=== PATIENT | female | born 1935 | race Caucasian/White ===

== ENCOUNTER 2017-01-29 13:05 | Emergency (ER) | payer MEDICARE ==
[2017-01-29 13:46] LABS: ALT (SGPT) 11 U/L (0-55); AST (SGOT) 21 U/L (5-34); Alkaline Phosphatase 60 U/L (40-150); Anion Gap 13 mmol/L (10-20); BUN (Urea Nitrogen) 9 mg/dL (9.8-20.1); Bilirubin, Total 0.6 mg/dL (0.2-1.2); CK (CPK) 21 U/L (29-168); Calc. Creatinine Clearance 0 mL/min (70-130); Calcium 9.2 mg/dL (7.8-10.44); Carbon Dioxide 27 mmol/L (23-31); Chloride 106 mmol/L (98-107); Estimated GFR-MDRD 52; Globulin 3.1 g/dL (2.4-3.5); Glucose 208 mg/dL (83-110); Potassium 3.9 mmol/L (3.5-5.1); Protein, Total 7.1 g/dL (5.8-8.1); Sodium 142 mmol/L (136-145)
[2017-01-29 13:52] LABS: Troponin I Less than 0.010 ng/mL (< 0.028)
[2017-01-29 14:08] LABS: Band 1 % (5-11); Eosinophils 2 % (0-10); Hemoglobin 14.6 g/dL (12.0-16.0); Lymphocytes 40 % (21-51); MDiff Complete? YES; Mean Corpuscular HGB CONC 33.9 g/dL (32.0-36.0); Mean Corpuscular Hemoglobin 32.7 pg (27.0-31.0); Mean Corpuscular Volume 96.5 fl (81.0-99.0); Mean Platelet Volume 7.2 fL (7.4-10.4); Monocytes 3 % (0-10); Neutrophil 53 % (42-75); PLT Morphology Comment Appears Adequate; Platelet Count 164 thou/uL (130-400); RBC Distribution Width 13.1 % (11.5-14.5); RBC Morphology Normal; Reactive Lymphocytes 1 % (0-10); Red Blood Cell (RBC) Count 4.48 mill/uL (4.20-5.40)
[2017-01-29 14:26] LABS: White Blood Cell (WBC) Count 4.4 thou/uL (4.8-10.8)
--- NOTE | 2017-01-29 21:28 | RAD ---
PORTABLE CHEST: Date: 01-29-17 An AP portable film at 1323 is compared with a 08-01-05 study from [facility]. FINDINGS: The heart is slightly larger today than it was before, even allowing for differences in projection. There are no congestive changes or pleural effusions. The lungs are clear. The trachea is midline. S coliosis is noted as usual. IMPRESSION: Borderline heart size. POS: HOME
== END 2017-01-29 16:25 | disposition short-term general hospital (02) ==
LOC: BURERS 13:05
DX: R07.9 Chest pain, unspecified (principal); R00.1 Bradycardia, unspecified; F32.9 Major depressive disorder, single episode, unspecified; Z95.5 Presence of coronary angioplasty implant and graft
CPT/HCPCS: 71010; 80053; 82550; 84443; 84484; 85025; 93005

== ENCOUNTER 2018-05-19 11:56 | Emergency (ER) | payer MEDICARE ==
[2018-05-19] MEDS ORDERED: Lidocaine Viscous Sol 2% 15 ml UD Cup ONE (12:08)
[2018-05-19] MEDS ORDERED: Magnesium Citrate 300 ML BOT ONE (13:16)
== END 2018-05-19 13:20 | disposition home or self-care (01) ==
LOC: BURERS 11:56
DX: K59.00 Constipation, unspecified (principal); I25.2 Old myocardial infarction; F32.9 Major depressive disorder, single episode, unspecified
CPT/HCPCS: 99283

== ENCOUNTER 2019-08-08 18:04 | Emergency (ER) | payer MEDICARE ==
[2019-08-08] MEDS ORDERED: Fleet Enema 133 ML BOT ONE (19:14)
[2019-08-08 19:16] LABS: Bilirubin Negative (Negative); Blood, Urine Trace (Negative); Clarity Clear (Clear); Glucose, Urine (Dipstick) Negative (Negative); Leukocyte Small (Negative); Nitrite Negative (Negative); Protein, Urine (Dipstick) Negative (Neg-Trace); Urobilinogen 0.2 mg/dL (Less than 2)
[2019-08-08 19:19] LABS: RBC/HPF 0-3 HPF (0-3); WBC/HPF 0-3 HPF (0-3)
[2019-08-08 19:20] LABS: Bacteria/HPF Rare-Few HPF (None Seen); Squamous Epithelial 0-3 HPF (0-3)
[2019-08-08] MEDS ORDERED: Lidocaine Viscous Sol 2% 15 ml UD Cup ONE (19:40)
--- NOTE | 2019-08-08 22:39 | RAD ---
ACUTE ABDOMEN SERIES 08/08/19 Supine and erect films show no free air beneath the diaphragm. A prominent S-shaped thoracolumbar sco liosis is noted as usual. Gas is present in mild distended large and small bowel. There is no free pa ttern or organization to the loops. The findings are more typical of an ileus than a tiera obstructio n, though if the symptoms were to worsen, a follow-up film might be needed to recheck it. Pelvic calc ifications are phleboliths. Dense arterial calcifications are present. The chest film in the series i s compared against a 01/29/17 study. The heart size is unchanged and the lungs are clear. There were n o acute thoracic findings. IMPRESSION: Nonspecific bowel gas pattern. POS: HOME
== END 2019-08-08 20:00 | disposition home or self-care (01) ==
LOC: BURERS 18:04
DX: K64.4 Residual hemorrhoidal skin tags (principal); I25.2 Old myocardial infarction; E11.9 Type 2 diabetes mellitus without complications; Z85.3 Personal history of malignant neoplasm of breast; F32.9 Major depressive disorder, single episode, unspecified; Z79.84 Long term (current) use of oral hypoglycemic drugs; Z79.899 Other long term (current) drug therapy
CPT/HCPCS: 74022; 81003; 81015; 82274; 87086

== ENCOUNTER 2019-10-09 11:46 | Emergency (ER) | payer MEDICARE ==
[2019-10-09 13:08] LABS: Bilirubin Negative (Negative); Blood, Urine Negative (Negative); Clarity Clear (Clear); Glucose, Urine (Dipstick) Negative (Negative); Leukocyte Trace (Negative); Nitrite Negative (Negative); Protein, Urine (Dipstick) Negative (Neg-Trace); Urobilinogen 0.2 mg/dL (Less than 2)
[2019-10-09 13:16] LABS: Bacteria/HPF Rare-Few HPF (None Seen); RBC/HPF None Seen HPF (0-3); Squamous Epithelial 0-3 HPF (0-3); WBC/HPF 0-3 HPF (0-3)
[2019-10-09 13:42] LABS: #Eosinphils 0.1 thou/uL (0.0-0.7); #Lymphocytes 1.5 thou/uL (1.20-3.40); #Monocytes 0.5 thou/uL (0.11-0.59); #Neutrophils 3.7 thou/uL (1.40-6.50); %Basophils 0.8 % (0.0-1.0); %Eosinophils 1.2 % (0.0-10.0); %Lymphocytes 26.1 % (21.0-51.0); %Monocytes 7.8 % (0.0-10.0); %Neutrophils 64.2 % (42.0-75.0); Hemoglobin 15.5 g/dL (12.0-16.0); Mean Corpuscular Hemoglobin 31.5 pg (27.0-31.0); Mean Corpuscular Volume 95.2 fL (78.0-98.0); Mean Platelet Volume 7.3 fL (7.4-10.4); Platelet Count 192 thou/uL (130-400); RBC Distribution Width 12.8 % (11.5-14.5); Red Blood Cell (RBC) Count 4.92 mill/uL (4.20-5.40); White Blood Cell (WBC) Count 5.7 thou/uL (4.8-10.8)
[2019-10-09 13:54] LABS: ALT (SGPT) 24 U/L (8-55); AST (SGOT) 27 U/L (5-34); Albumin 4.6 g/dL (3.4-4.8); Alkaline Phosphatase 80 U/L (40-110); Anion Gap 17 mmol/L (10-20); BUN (Urea Nitrogen) 25 mg/dL (9.8-20.1); Bilirubin, Total 0.7 mg/dL (0.2-1.2); Calc. Creatinine Clearance 0 mL/min (70-130); Calcium 10.1 mg/dL (7.8-10.44); Carbon Dioxide 26 mmol/L (23-31); Chloride 101 mmol/L (98-107); Estimated GFR-MDRD 35; Globulin 3.7 g/dL (2.4-3.5); Glucose 117 mg/dL (83-110); Potassium 4.2 mmol/L (3.5-5.1); Protein, Total 8.3 g/dL (6.0-8.3); Sodium 140 mmol/L (136-145)
[2019-10-09] MEDS ORDERED: Nitrofurantoin Monohyd/M-Cryst 100 MG CAP ONE (14:50)
--- NOTE | 2019-10-09 14:59 | CT ---
CT ABDOMEN AND PELVIS WITHOUT IV CONTRAST: Date: 10/09/19 INDICATION: Abdominal pain. Comparison made to CT abdomen and pelvis dated 2004. FINDINGS: Lung bases are clear. The liver, spleen, and pancreas appear unremarkable considering limitations of a noncontrast study. T here are calcifications in the pancreatic head, which are new from the prior exam. There is a small sliding diaphragmatic hernia. Adrenal glands are normal. Kidneys unremarkable. No hydronephrosis. Ureters are normal caliber. Urinary bladder is mildly disten ded and unremarkable. Small bowel loops are normal caliber. Colon appears unremarkable. Aorta is calcified, but normal caliber. No mass or adenopathy. Images through the pelvis show evidence of hysterectomy. There is an anterior abdominal wall hernia in the midline superior to the umbilicus. Anterior abdomin al wall defect measures approximately 1.7 cm. Mesenteric fat herniates into the subcutaneous adipose tissue with hernia sac measuring 6.0 cm width. IMPRESSION: 1. No acute intra-abdominal process identified. 2. Anterior abdominal wall hernia as described above. POS: [facility]
== END 2019-10-09 15:02 | disposition home or self-care (01) ==
LOC: BURERS 11:46
DX: N39.0 Urinary tract infection, site not specified (principal); R10.30 Lower abdominal pain, unspecified; R32 Unspecified urinary incontinence; I25.2 Old myocardial infarction; E11.9 Type 2 diabetes mellitus without complications; F32.9 Major depressive disorder, single episode, unspecified; Z79.899 Other long term (current) drug therapy
CPT/HCPCS: 74176; 80053; 81003; 81015; 85025; 87086

== ENCOUNTER 2019-10-18 14:45 | Emergency (ER) | payer MEDICARE ==
[2019-10-18 15:38] LABS: Base Excess-Venous -0.9 mmol/L (-2.0 to 3.0); Bicarbonate (HCO3v) 25.8 mmol/L (22.0-28.0); CO2 Tension (PvCO2) 49.5 mmHg (40.0-50.0); Calcium, Ionized 1.14 mmol/L (See Comments:); Chloride 104 mmol/L (98-107); Hemoglobin - Calc 14.4 g/dL (12.0-16.0); Potassium 3.8 mmol/L (3.5-5.1); Sodium 139 mmol/L (138-145); T. Carbon Dioxide 27.3 mmol/L (22.0-28.0); vO2 Saturation-calc 92.1 % (60.0-85.0)
[2019-10-18 15:40] LABS: #Basophils 0.1 thou/uL (0.0-0.2); #Eosinphils 0.1 thou/uL (0.0-0.7); #Lymphocytes 1.4 thou/uL (1.20-3.40); #Monocytes 0.5 thou/uL (0.11-0.59); #Neutrophils 3.3 thou/uL (1.40-6.50); %Basophils 1.2 % (0.0-1.0); %Eosinophils 1.4 % (0.0-10.0); %Lymphocytes 25.4 % (21.0-51.0); %Monocytes 9.3 % (0.0-10.0); %Neutrophils 62.7 % (42.0-75.0); Hemoglobin 13.5 g/dL (12.0-16.0); Mean Corpuscular HGB CONC 32.3 g/dL (32.0-36.0); Mean Platelet Volume 6.6 fL (7.4-10.4); Platelet Count 199 thou/uL (130-400); RBC Distribution Width 12.5 % (11.5-14.5); Red Blood Cell (RBC) Count 4.35 mill/uL (4.20-5.40); White Blood Cell (WBC) Count 5.3 thou/uL (4.8-10.8)
[2019-10-18 15:42] LABS: ALT (SGPT) 11 U/L (8-55); AST (SGOT) 12 U/L (5-34); Albumin 3.9 g/dL (3.4-4.8); Alkaline Phosphatase 65 U/L (40-110); Anion Gap 15 mmol/L (10-20); BUN (Urea Nitrogen) 17 mg/dL (9.8-20.1); Bilirubin, Total 0.3 mg/dL (0.2-1.2); Calc. Creatinine Clearance 0 mL/min (70-130); Calcium 9.2 mg/dL (7.8-10.44); Carbon Dioxide 23 mmol/L (23-31); Chloride 105 mmol/L (98-107); Estimated GFR-MDRD 41; Globulin 3.1 g/dL (2.4-3.5); Glucose 251 mg/dL (83-110); Potassium 3.9 mmol/L (3.5-5.1); Sodium 139 mmol/L (136-145)
[2019-10-18 15:43] LABS: Bilirubin Negative (Negative); Blood, Urine Negative (Negative); Clarity Clear (Clear); Glucose, Urine (Dipstick) 250 mg/dL (Negative); Leukocyte Negative (Negative); Nitrite Negative (Negative); Protein, Urine (Dipstick) Negative (Neg-Trace); Urobilinogen 0.2 mg/dL (Less than 2)
--- NOTE | 2019-10-18 17:35 | RAD ---
ACUTE ABDOMEN SERIES: 10/18/19 Comparison is made with a 08/08/19 exam. The abdominal gas pattern is nonspecific with gas present in nondilated large and small bowel. The ao rta is densely calcified, as are the iliac arteries. Phleboliths are noted in the pelvis. A prominen t S-shaped thoracolumbar scoliosis is present as usual. Degenerative changes are present in the spine and the hips. The chest film included in the series, aside from the scoliosis, shows a normal sized heart and clear lungs. There were no acute thoracic changes and no change since the last exam. IMPRESSION: Nonspecific abdominal findings. Severe arteriosclerosis. POS: HOME
== END 2019-10-18 15:57 | disposition home or self-care (01) ==
LOC: BURERS 14:45
DX: R10.30 Lower abdominal pain, unspecified (principal); I25.2 Old myocardial infarction; E11.9 Type 2 diabetes mellitus without complications; F32.9 Major depressive disorder, single episode, unspecified; Z79.899 Other long term (current) drug therapy
CPT/HCPCS: 36415; 51701; 74022; 80053; 81003; 82330; 82803; 83605; 85025

== ENCOUNTER 2019-11-06 06:24 | Emergency (ER) | payer MEDICARE ==
[2019-11-06] MEDS ORDERED: HYDROcodone/Acetaminophen 5/325 mg Tablet ONE (07:07)
[2019-11-06] MEDS ORDERED: Ibuprofen 200 MG TAB ONE (07:07)
--- NOTE | 2019-11-06 19:13 | RAD ---
CHEST TWO VIEWS: 11/06/19 Comparison is made with a prior chest film of 10/18/2019. The heart size is stable. There is no major l obar infiltrate of effusion. No pneumothorax was seen. There were a few minor irregularities in some of the right ribs but I cannot absolutely confirm a fra cture as of yet. There is some areas in the right lateral ribs that are mildly suspicious. Dedicated rib films would be needed to show the area better. IMPRESSION: Equivocal rib findings on the right. POS: HOME
== END 2019-11-06 07:55 | disposition home or self-care (01) ==
LOC: BURERS 06:24
DX: S22.31XA Fracture of one rib, right side, initial encounter for closed fracture (principal); E11.9 Type 2 diabetes mellitus without complications; I25.2 Old myocardial infarction; F32.9 Major depressive disorder, single episode, unspecified; W18.30XA Fall on same level, unspecified, initial encounter
CPT/HCPCS: 71046; 93005

== ENCOUNTER 2020-06-10 10:45 | Emergency (ER) | payer MEDICARE ==
[2020-06-10 11:41] LABS: Bilirubin Negative (Negative); Blood, Urine Trace (Negative); Glucose, Urine (Dipstick) Negative (Negative); Ketone, Urine Negative (Negative); Leukocyte Negative (Negative); Nitrite Negative (Negative); Protein, Urine (Dipstick) 30 mg/dL (Neg-Trace); Urobilinogen 0.2 mg/dL (Less than 2)
[2020-06-10 11:43] LABS: Clarity Slightly Cloudy (Clear)
[2020-06-10 11:57] LABS: RBC/HPF 0-3 HPF (0-3); Squamous Epithelial 0-3 HPF (0-3); WBC/HPF 0-3 HPF (0-3)
[2020-06-10 11:58] LABS: Bacteria/HPF None Seen HPF (None Seen); Mucous/LPF 1+ LPF (<2+); Oval Fat Bodies/HPF Rare HPF (None Seen)
[2020-06-10 12:07] LABS: #Eosinphils 0.1 thou/uL (0.0-0.7); #Lymphocytes 1.3 thou/uL (1.20-3.40); #Monocytes 0.5 thou/uL (0.11-0.59); #Neutrophils 3.4 thou/uL (1.40-6.50); %Basophils 0.9 % (0.0-1.0); %Eosinophils 1.2 % (0.0-10.0); %Lymphocytes 23.7 % (21.0-51.0); %Monocytes 9.6 % (0.0-10.0); %Neutrophils 64.5 % (42.0-75.0); Mean Corpuscular HGB CONC 32.1 g/dL (32.0-36.0); Mean Corpuscular Hemoglobin 31.9 pg (27.0-31.0); Mean Corpuscular Volume 99.2 fL (78.0-98.0); Mean Platelet Volume 7.3 fL (7.4-10.4); Platelet Count 174 thou/uL (130-400); RBC Distribution Width 12.5 % (11.5-14.5); Red Blood Cell (RBC) Count 4.38 mill/uL (4.20-5.40); White Blood Cell (WBC) Count 5.3 thou/uL (4.8-10.8)
[2020-06-10 12:17] LABS: ALT (SGPT) 9 U/L (8-55); AST (SGOT) 13 U/L (5-34); Albumin 4.1 g/dL (3.4-4.8); Alkaline Phosphatase 57 U/L (40-110); Anion Gap 14 mmol/L (10-20); BUN (Urea Nitrogen) 26 mg/dL (9.8-20.1); Bilirubin, Total 0.7 mg/dL (0.2-1.2); CK (CPK) 60 U/L (29-168); Calc. Creatinine Clearance 0 mL/min (70-130); Calcium 9.4 mg/dL (7.8-10.44); Carbon Dioxide 27 mmol/L (23-31); Chloride 104 mmol/L (98-107); Estimated GFR-MDRD 41; Globulin 2.9 g/dL (2.4-3.5); Glucose 169 mg/dL (83-110); Potassium 4.3 mmol/L (3.5-5.1); Sodium 141 mmol/L (136-145)
--- NOTE | 2020-06-10 21:29 | RAD ---
ACUTE ABDOMEN SERIES 06/10/20 Comparison is made with the 10/18/2019 study. There is no distended loops of bowel to suggest obstruction. There is abundant fecal material in the rectosigmoid region, but still no obstruction. Dense arterial calcification is seen in the aorta and iliac arteries. Marked scoliosis is present as usual. No free air is seen beneath the diaphragm. The chest film in the series shows a normal sized heart and clear lungs. No acute infiltrate or effus ion was seen. IMPRESSION: No definite acute findings. See above. POS: HOME
== END 2020-06-10 13:09 | disposition home or self-care (01) ==
LOC: BURERS 10:45
DX: K59.00 Constipation, unspecified (principal); R53.1 Weakness; F03.90 Unspecified dementia, unspecified severity, without behavioral disturbance, psychotic disturbance, mood disturbance, and anxiety; I25.2 Old myocardial infarction; E11.9 Type 2 diabetes mellitus without complications; F32.9 Major depressive disorder, single episode, unspecified
CPT/HCPCS: 51701; 74022; 80053; 81003; 81015; 82550; 83735; 85025; 87086; 93005; 96360

== ENCOUNTER 2020-07-18 12:42 | Emergency (ER) | payer MEDICARE ==
--- NOTE | 2020-07-18 17:59 | RAD ---
CHEST TWO VIEWS: Date: 07-18-2020 Comparison: 11-06-2019. I also reviewed a 10-09-19 CT abdomen and pelvis that showed the lower chest. FINDINGS: A prominent S-shaped thoracolumbar scoliosis is present as usual. On the lateral view there appears t o be a mild anterior compression of one of the lower thoracic vertebrae, approximately T10. I cannot confirm this was present on either the prior chest film and certainly not on the CT. If the patient's back pain is in this general location, this could be the reason. Otherwise, the lungs are clear. The heart is normal in size. There is no congestive change or pleural effusion. Dense calcification is seen in the aortic arch. IMPRESSION: 1. No acute parenchymal changes. 2. Slight anterior compression of a low thoracic vertebrae, approximately T10, in this patient with g eneralized osteopenia. POS: HOME
== END 2020-07-18 14:03 | disposition home or self-care (01) ==
LOC: BURERS 12:42
DX: S22.070A Wedge compression fracture of T9-T10 vertebra, initial encounter for closed fracture (principal); M47.814 Spondylosis without myelopathy or radiculopathy, thoracic region; M41.84 Other forms of scoliosis, thoracic region; M81.8 Other osteoporosis without current pathological fracture; F03.90 Unspecified dementia, unspecified severity, without behavioral disturbance, psychotic disturbance, mood disturbance, and anxiety; I25.2 Old myocardial infarction; E11.9 Type 2 diabetes mellitus without complications; F32.9 Major depressive disorder, single episode, unspecified; W18.30XA Fall on same level, unspecified, initial encounter
CPT/HCPCS: 71046

== ENCOUNTER 2020-10-31 13:25 | Emergency (ER) | payer MEDICARE ==
[2020-10-31] MEDS ORDERED: Acetaminophen 500 MG TAB ONE (14:21)
[2020-10-31] MEDS ORDERED: predniSONE 20 MG TAB ONE (14:21)
[2020-10-31] MEDS ORDERED: diphenhydrAMINE 25 MG CAP ONE (14:21)
== END 2020-10-31 14:32 | disposition home or self-care (01) ==
LOC: BURERS 13:25
DX: M54.12 Radiculopathy, cervical region (principal); F03.90 Unspecified dementia, unspecified severity, without behavioral disturbance, psychotic disturbance, mood disturbance, and anxiety; I25.2 Old myocardial infarction; E11.9 Type 2 diabetes mellitus without complications
CPT/HCPCS: 99283; J7512; Q0163

== ENCOUNTER 2020-12-04 12:31 | Inpatient (IN) | payer MEDICARE ==
[2020-12-04 13:08] LABS: #Basophils 0.1 thou/uL (0.0-0.2); #Lymphocytes 1.1 thou/uL (1.20-3.40); #Monocytes 0.6 thou/uL (0.11-0.59); #Neutrophils 4.8 thou/uL (1.40-6.50); %Basophils 0.8 % (0.0-1.0); %Eosinophils 0.4 % (0.0-10.0); %Lymphocytes 16.3 % (21.0-51.0); %Monocytes 9.8 % (0.0-10.0); %Neutrophils 72.7 % (42.0-75.0); Hemoglobin 13.2 g/dL (12.0-16.0); Mean Corpuscular HGB CONC 33.8 g/dL (32.0-36.0); Mean Corpuscular Hemoglobin 31.8 pg (27.0-31.0); Mean Corpuscular Volume 94.3 fL (78.0-98.0); Mean Platelet Volume 8.4 fL (7.4-10.4); Platelet Count 162 thou/uL (130-400); RBC Distribution Width 12.5 % (11.5-14.5); Red Blood Cell (RBC) Count 4.15 mill/uL (4.20-5.40); White Blood Cell (WBC) Count 6.6 thou/uL (4.8-10.8)
[2020-12-04 13:20] LABS: ALT (SGPT) 19 U/L (8-55); AST (SGOT) 22 U/L (5-34); Albumin 3.5 g/dL (3.4-4.8); Alkaline Phosphatase 66 U/L (40-110); Anion Gap 14 mmol/L (10-20); BUN (Urea Nitrogen) 10 mg/dL (9.8-20.1); Bilirubin, Total 0.9 mg/dL (0.2-1.2); Calc. Creatinine Clearance 0 mL/min (70-130); Calcium 8.9 mg/dL (7.8-10.44); Carbon Dioxide 26 mmol/L (23-31); Chloride 103 mmol/L (98-107); Globulin 2.9 g/dL (2.4-3.5); Glucose 163 mg/dL (83-110); Potassium 3.1 mmol/L (3.5-5.1); Protein, Total 6.4 g/dL (5.8-8.1); Sodium 140 mmol/L (136-145)
[2020-12-04 13:42] LABS: CKMB 9.4 ng/mL (0-6.6)
--- NOTE | 2020-12-04 13:42 | CT ---
CT OF THE BRAIN WITHOUT CONTRAST: 12/04/[address] shows diffuse atrophy with mild compensatory dilatation of the ventricles. Deep whit e matter lucency is typical of chronic microvascular ischemia. There were no findings strongly sugges tive of acute stroke, mass or bleeding. No edema was seen. The skull appears intact and the visible paranasal sinuses are clear. IMPRESSION: Atrophy and chronic ischemic changes but no acute findings. Preliminary report called to Anne in ER at 1307 on 12/04/20. POS: HOME
--- NOTE | 2020-12-04 13:45 | RAD ---
PORTABLE CHEST: 12/04/20 An AP portable film at 1311 is compared with a 07/18/20 study. The interstitial markings are more prominent today than before and the vasculature seems slightly pro minent. The findings suggest very mild congestive change. Cardiac size is upper normal to slightly en larged. Dense calcification is seen in the aorta as usual. IMPRESSION: Increasing interstitial markings, most likely due to mild congestive change. POS: HOME
[2020-12-04 14:18] LABS: Bilirubin Small (Negative); Blood, Urine Trace (Negative); Clarity Clear (Clear); Glucose, Urine (Dipstick) 100 mg/dL (Negative); Ketone, Urine Trace mg/dL (Negative); Leukocyte Negative (Negative); Nitrite Negative (Negative); Protein, Urine (Dipstick) 100 mg/dL (Neg-Trace); Specific Gravity, Urine 1.025 (1.005-1.030)
[2020-12-04 15:09] LABS: Bacteria/HPF Rare-Few HPF (None Seen); Squamous Epithelial 0-3 HPF (0-3); WBC/HPF 0-3 HPF (0-3)
[2020-12-04] MEDS ORDERED: Haloperidol Lactate 5 MG/ML VIAL ONE ×3 (15:44→17:34)
[2020-12-04] MEDS ORDERED: Lorazepam 2 MG/ML VIAL ONE (17:44)
[2020-12-04 17:52] LABS: SARS-CoV-2 NAA Rapid Test Not Detected (NotDetected)
[2020-12-04] MEDS ORDERED: CEFAZOLIN 1 GM VIAL ONE (19:12)
[2020-12-04] MEDS ORDERED: Haloperidol Lactate 5 MG/ML VIAL IM PRN (19:42)
[2020-12-04] MEDS ORDERED: Ondansetron PF 4 MG/2 ML Vial IVP PRN (19:45)
[2020-12-04] MEDS ORDERED: HYDROcodone/Acetaminophen 5/325 mg Tablet PO PRN (19:45)
[2020-12-04] MEDS ORDERED: Ondansetron ODT 4 MG TAB PO PRN (19:45)
[2020-12-04 21:43] VITALS: BMI 22.8
[2020-12-05] MEDS: Aspirin 81 mg Enteric Coated Tablet PO SCH (08:53)
[2020-12-05] MEDS: Acetaminophen 325 MG TAB PO PRN ×3 (14:21→20:48)
[2020-12-05] MEDS ORDERED: Pharmacy to Dose UNASYN IVPB PRN (14:47)
[2020-12-05] MEDS: Potassium Chloride 20 MEQ TAB PO SCH (15:53)
[2020-12-05] MEDS: Furosemide 20 MG TAB PO SCH (15:54)
--- NOTE | 2020-12-05 16:47 | HP ---
CHIEF COMPLAINT: Change in status. HISTORY OF PRESENT ILLNESS: The patient is an 85-year-old female with ongoing dementia, very poor historian. Apparently after speaking with the emergency room attending, reviewing the chart, and also spending time in conversation via telephone with the patient's son, Ms. Goodwin has had worsening dementia for 15 to 20 years. The last 2 years have been particularly worse with good days and bad days noted by the son. Apparently, the last couple of weeks now, she has been hallucinating, not remembering even her son at times. She had not been answering her phone as normal. So, approximately 2 times prior to presenting to the emergency department, her son found her on the floor in the home with the home in disarray. The most recent time he called the EMS service and she was transported to [facility] Emergency Room yesterday. She had testing and was admitted. PAST MEDICAL HISTORY: Diabetes, CAD, myocardial infarction, CHF, breast malignancy, hard of hearing. PAST SURGICAL HISTORY: Cholecystectomy, hysterectomy, hernia. SOCIAL HISTORY: Living at home alone apparently in unsafe and unhealthy conditions. Her next-of-kin is her son who is himself disabled and has tried to looking on her for as long as he has been able, but does not really seem to be able to care for her at this point, especially owing to his own disability. Apparently, financial resources are extremely limited. REVIEW OF SYSTEMS: Again, this is difficult. No other real way to ascertain from the patient other than noting redness on the skin of the legs and edema of the legs. PHYSICAL EXAMINATION: VITAL SIGNS: Current temperature 97.8, pulse 88, respiratory rate 18, oxygen saturation 97% on room air, blood pressure 137/80. GENERAL: The patient is lying in bed, relatively motionless, will respond to commands, but is otherwise not alert and not oriented. EARS, NOSE, AND THROAT: Mucous membranes are pink and slightly dry. She is edentulous. HEART: Irregular, which is difficult to ascertain whether she is regular with ventricular ectopy versus fibrillating, but there is no S4. Questionable S3. There is a normal S1 and S2 present. PMI does not seem especially laterally displaced. LUNGS: Relatively clear anteriorly from the lateral position bilaterally at the bases. There are perhaps some fine rales. ABDOMEN: Soft and nondistended. Normoactive bowel sounds. Nontender. No appreciable mass. EXTREMITIES: Warm with approximately 3+ pitting edema into the feet and lower legs. There is bilateral erythema of the skin, which is slightly warm on both sides; however, the right side is a little bit tender. There is no tiera ulcer apparent. The nails are mycotic bilaterally. REVIEW OF DATA: Labs show most recent glucose 182. There were 2 troponins that were 0.03. There is a BNP of 444.2. CBC shows a white count of 6.6, hemoglobin 13.2, hematocrit 39.1, and platelet count of 162. She has a potassium of 3.1, but electrolytes and renal function are otherwise within the normal limits. She had a normal lactic acid at 1.2. Influenza A and B swabs negative. COVID swab negative. Chest x-ray is read as increased interstitial markings, most likely related to a mild congestive change. The CT of the brain yesterday was atrophy and chronic ischemic changes, but nothing acute. IMPRESSION: 1. Cellulitis of leg. 2. Dementia. 3. Agitation. 4. Congestive heart failure, mild. 5. Diabetes, mild. 6. Hypokalemia. PLAN: She will be given IV antibiotics. She received Haldol for the agitation and I would recommend that we continue this as needed, especially to help prevent her from falling. The CHF is mild, though we will do very low dose Lasix orally and attempt to track her fluid output. Continue to monitor the blood sugars. Potassium will be repleted. The patient's care will be transferred tomorrow to Dr. Melara, her primary care physician. I would state that the overarching goal here would be to assist the patient in finding a stable place of living that is not on her own. Job ID: [id number]
[2020-12-05] MEDS: Ampicillin/Sulbactam 1.5 GM in Sodium Chloride 0.9% 100 ML IVPB SCH ×2 (18:50→23:22)
[2020-12-05] MEDS: Enoxaparin Sodium 30 MG/0.3 ML SYRINGE SC SCH (20:49)
[2020-12-05] MEDS ORDERED: FLU VACC QS2020-21(65YR UP)/PF 240 MCG/0.7 ML SYRINGE IM ONE (21:00)
[2020-12-06] MEDS: Ampicillin/Sulbactam 1.5 GM in Sodium Chloride 0.9% 100 ML IVPB SCH ×3 (05:32→17:51)
[2020-12-06] MEDS: Aspirin 81 mg Enteric Coated Tablet PO SCH (08:26)
[2020-12-06] MEDS: Potassium Chloride 20 MEQ TAB PO SCH ×2 (08:27→17:52)
[2020-12-06] MEDS: metFORMIN 500 MG TAB PO SCH (08:27)
[2020-12-06] MEDS: Acetaminophen 325 MG TAB PO PRN (10:42)
[2020-12-06 13:15] LABS: #Basophils 0.1 thou/uL (0.0-0.2); #Eosinphils 0.1 thou/uL (0.0-0.7); #Monocytes 0.5 thou/uL (0.11-0.59); #Neutrophils 4.1 thou/uL (1.40-6.50); %Basophils 1.2 % (0.0-1.0); %Eosinophils 1.1 % (0.0-10.0); %Lymphocytes 17.1 % (21.0-51.0); %Monocytes 9.1 % (0.0-10.0); %Neutrophils 71.5 % (42.0-75.0); Hemoglobin 13.3 g/dL (12.0-16.0); Mean Corpuscular HGB CONC 32.1 g/dL (32.0-36.0); Mean Corpuscular Hemoglobin 31.5 pg (27.0-31.0); Mean Corpuscular Volume 98.1 fL (78.0-98.0); Platelet Count 169 thou/uL (130-400); RBC Distribution Width 13.3 % (11.5-14.5); Red Blood Cell (RBC) Count 4.23 mill/uL (4.20-5.40); White Blood Cell (WBC) Count 5.7 thou/uL (4.8-10.8)
[2020-12-06] MEDS ORDERED: HumaLOG 300 UNITS/3 ML VIAL SC PRN (13:15)
[2020-12-06] MEDS ORDERED: Dextrose 5% in Water 1,000 ML IV PRN (13:15)
[2020-12-06] MEDS ORDERED: Dextrose 50% Abboject 50 ML SYRINGE IVP PRN (13:15)
[2020-12-06] MEDS: HumaLOG 300 UNITS/3 ML VIAL SC PRN (13:39)
[2020-12-06] MEDS: Furosemide 20 MG TAB PO SCH (15:08)
[2020-12-06 16:56] VITALS: BP 146/79
[2020-12-06 17:59] LABS: Anion Gap 19 mmol/L (10-20); Globulin 3.1 g/dL (2.4-3.5)
[2020-12-06 19:30] LABS: Albumin 3.2 g/dL (3.4-4.8)
[2020-12-06 19:31] LABS: Chloride 107 mmol/L (98-107); Potassium 3.9 mmol/L (3.5-5.1); Sodium 140 mmol/L (136-145)
[2020-12-06 19:32] LABS: Calcium 8.3 mg/dL (7.8-10.44)
[2020-12-06 19:33] LABS: Glucose 184 mg/dL (83-110); Protein, Total 6.3 g/dL (5.8-8.1)
[2020-12-06 19:34] LABS: Bilirubin, Total 0.4 mg/dL (0.2-1.2); Carbon Dioxide 17 mmol/L (23-31)
[2020-12-06 19:36] LABS: Alkaline Phosphatase 58 U/L (40-110); Calc. Creatinine Clearance 34 mL/min (70-130)
[2020-12-06 19:37] LABS: BUN (Urea Nitrogen) 12 mg/dL (9.8-20.1)
[2020-12-06 19:38] LABS: ALT (SGPT) 13 U/L (8-55); AST (SGOT) 23 U/L (5-34)
[2020-12-06] MEDS ORDERED: Lorazepam 1 MG TAB PO PRN (20:05)
[2020-12-06] MEDS ORDERED: Lorazepam 2 MG/ML VIAL IM PRN (20:05)
[2020-12-06] MEDS: Enoxaparin Sodium 30 MG/0.3 ML SYRINGE SC SCH (21:51)
[2020-12-07] MEDS: Ampicillin/Sulbactam 1.5 GM in Sodium Chloride 0.9% 100 ML IVPB SCH ×3 (01:00→12:12)
[2020-12-07 07:08] VITALS: TEMP 98.6
[2020-12-07] MEDS: Aspirin 81 mg Enteric Coated Tablet PO SCH ×2 (09:06→12:11)
[2020-12-07] MEDS: metFORMIN 500 MG TAB PO SCH ×2 (09:06→12:12)
[2020-12-07] MEDS: Potassium Chloride 20 MEQ TAB PO SCH ×3 (09:06→15:55)
[2020-12-07] MEDS: Acetaminophen 325 MG TAB PO PRN (12:22)
[2020-12-07] MEDS: Furosemide 20 MG TAB PO SCH (15:55)
[2020-12-07] MEDS: HumaLOG 300 UNITS/3 ML VIAL SC PRN (17:33)
--- NOTE | 2020-12-08 04:36 | DIS ---
DATE OF ADMISSION: 12/04/2020 DATE OF DISCHARGE: 12/07/2020 ADMISSION DIAGNOSES: 1. Cellulitis of bilateral lower extremities. 2. Congestive heart failure exacerbation. SECONDARY DIAGNOSES: 1. Type 2 diabetes mellitus. 2. Vascular dementia. 3. Hypokalemia. PROCEDURES: 1. On 12/04/2020, brain CT scan showed atrophy and chronic ischemic changes, but no acute findings. 2. On 12/04/2020, chest x-ray showed increasing interstitial markings, most likely due to mild congestive change. HOSPITAL COURSE: This is an 85-year-old female who presented acutely to the [facility] Emergency Department in a disheveled appearance with noted abrasions to bilateral lower extremities and surrounding erythema. Lab workup revealed the patient to have a mildly elevated BNP level of 444.2, and mild hypokalemia at 3.1. The patient has advanced dementia and is unable to satisfactorily care for herself at home and thus was admitted for further treatment of her cellulitis and mild CHF exacerbation with the intention for placement to a long-term care facility when able. The patient was treated with IV Unasyn and remained afebrile on the floor. She has no leukocytosis and has shown steady improvement in regard to her skin findings. Her mental status is impaired secondary to her vascular dementia and she did display agitation and at times during her stay, particularly in the evening for which Seroquel was initiated and p.r.n. lorazepam was added. Her fluid status improved with Lasix and her potassium was effectively repleted. The patient has been set up to transition to a long-term care facility in [place] and is suitable for discharge today at this time. DISPOSITION: The patient will discharge to long-term care facility in [place] for further care. DISCHARGE MEDICATIONS: Include: 1. Keflex 500 mg p.o. b.i.d. x5 days. 2. Aspirin 81 mg daily. 3. Lasix 20 mg daily. 4. Lorazepam 1 mg q.8 hours p.r.n. 5. Metformin 500 mg p.o. daily. 6. Potassium chloride 20 mEq p.o. b.i.d. 7. Seroquel 50 mg at bedtime. Total time spent in preparation discharge of this patient greater than 30 minutes. Job ID: [id number]
--- NOTE | 2020-12-09 11:57 | PQF ---
CLINICAL DOCUMENTATION CLARIFICATION FORM: Dear : Rony Melara Date / Time: 12/09/2020 Please exercise your independent, professional judgment in responding to the clarification form. Clinical indicators are provided on the bottom of this form for your review Please check appropriate box(es): HEART FAILURE: A. ACUITY [ ] Acute [ x ] Acute on Chronic [ ] Chronic B. TYPE: [ ] Systolic / HFrEF [ ] Diastolic / HFpEF [ ] Combined Systolic / Diastolic [ ] Other diagnosis [ x] Unable to determine In addition, please specify: Present on Admission (POA): [ x ] Yes [ ] No [ ] Unable to determine To be completed by CDI/Coding staff for physician review: Present Clinical Indicators - Signs / Symptoms / Labs Results and Location in Medical Record [ x ] Congestive heart failure exacerbation. Patient was admitted for further treatment of cellulitis and mild CHF exacerbation. Discharge summary [ x ] CHF, mild. We will do very low dose Lasix orally and attempt to track her fluid outut H and P [ x ] Elevated BNP at 444.2 Laboratory [ x ] Increasing interstitial markings, most likely due to mild congestive changes Chest x-ray 12/04 Present Risk Factors Results and Location in Medical Record [ x ] History of CHF, diabetes H and P Present Treatments Results and Location in Medical Record [ x ] PO Lasix 20 mg Medications [ x ] Chest x-ray Reports [ x ] Lab done for BNP Laboratory CDS/Wheel Alignment Mechanic Signature: [email or web address] Phone #: Date/Time: 12/09/2020 This is a permanent part of the Medical Record [facility]
--- NOTE | 2020-12-09 12:09 | PQF ---
CLINICAL DOCUMENTATION CLARIFICATION FORM: Dear : Rony Melara Date / Time: 12/09/2020 Please exercise your independent, professional judgment in responding to the clarification form. Clinical indicators are provided on the bottom of this form for your review Please check appropriate box(s): [ ] Cellulitis is due to diabetes [x ] Cellulitis is not due to diabetes [ ] Other diagnosis [ ] Unable to determine In addition, please specify: Present on Admission (POA): [x ] Yes [ ] No [ ] Unable to determine To be completed by CDI/Coding staff for physician review: Present Clinical Indicators - Signs / Symptoms / Labs Results and Location in Medical Record [ x ] Cellulitis of leg. Diabetes, mild. She will be given IV antibiotics. Continue to monitor the blood sugars H and P [ x ] PMH documents diabetes mellitus H and P [ x ] Blood glucose is high at 163 Laboratory [ ] Documentation of Cellulitis Present Risk Factors Results and Location in Medical Record [ x ] History of diabetes mellitus, CHF H and P Present Treatments Results and Location in Medical Record [ x ] IV Unasyn 12/04-12/07 Medications [ x ] IV Ancef Medications [ x ] Metformin 500 mg Medications [ x ] Monitoring blood sugars H and P CDS/Fusing Line Inspector Signature: [email or web address] Phone #: Date/Time: 12/09/2020 This is a permanent part of the Medical Record [facility]
== END 2020-12-07 18:02 | DRG 603 ==
LOC: BURERS 12:31 → BURMED 19:30
PROVIDERS: ADMIT Family Medicine; ATTEND Family Medicine
DX: L03.116 Cellulitis of left lower limb (principal); L03.115 Cellulitis of right lower limb; E11.9 Type 2 diabetes mellitus without complications; E87.6 Hypokalemia; F01.50 Vascular dementia, unspecified severity, without behavioral disturbance, psychotic disturbance, mood disturbance, and anxiety; I50.9 Heart failure, unspecified; I25.10 Atherosclerotic heart disease of native coronary artery without angina pectoris; Z20.822 Contact with and (suspected) exposure to COVID-19; I25.2 Old myocardial infarction; Z90.710 Acquired absence of both cervix and uterus; Z90.49 Acquired absence of other specified parts of digestive tract
CPT/HCPCS: 0240U; 36415; 36416; 70450; 71045; 80053; 81003; 81015; 82550; 82553; 83605; 83880; 84484; 85025; 93005; J0295; J0690; J1630; J1650; J1815; J2060; J2405; J3490